=== PATIENT | female | born 1995 | race African-American/Black ===

== ENCOUNTER 2016-11-12 21:09 | Emergency (ER) | payer SELFPAY ==
[~2016-11-12] VITALS: Ht 172.7 cm; Wt 95.8 kg
[2016-11-12 22:46] LABS: HEMATOCRIT 36.6 % (36.0-46.0); MCH 26.1 PG (29.0-34.0); MCHC 33.1 G/DL (30.0-36.0); MCV 78.9 FL (83-99); MEAN PLAT.VOLUME 9.8 uM^3 (9.5-12.4); PLATELET COUNT 251 K/uL (156-360); RBC DIS.WIDTH-CV 13.6 % (11.8-14.6); RBC DIS.WIDTH-SD 38.2 % (39-53); RED BLOOD COUNT 4.64 M/uL (3.80-5.20)
[2016-11-12 22:47] LABS: WHITE BLOOD COUNT 7.2 K/uL (4.1-10.2)
[2016-11-12 22:55] LABS: CHLORIDE 107 mEq/L (99-109); POTASSIUM 3.6 mEq/L (3.7-5.4); SODIUM 138 mEq/L (136-147)
[2016-11-12 22:57] LABS: GLUCOSE 88 mg/dL (70-99)
[2016-11-12 22:58] LABS: ANION GAP 10 MEQ/L (2-14)
[2016-11-12 22:59] LABS: TOTAL BILIRUBIN 0.3 mg/dL (0.0-1.0)
[2016-11-12 22:59] LABS: ADD MIUA? YES; BILIRUBIN NEGATIVE; BLOOD LARGE; COLOR YELLOW ((YELLOW)); GLUCOSE (STRIP) NEGATIVE; KETONES 20; LEUKOCYTES MODERATE; NITRITE NEGATIVE; PROTEIN (STRIP) 100; SPECIFIC GRAVITY 1.028 (1.000-1.030); UROBILINOGEN 0.2 MG/DL (0.2-1.0)
[2016-11-12 23:00] LABS: ALKALINE PHOSPHATASE 57 IU/L (3-129)
[2016-11-12 23:01] LABS: GFR ESTIMATE (CALCULATED) > 59 mL/min/
[2016-11-12 23:02] LABS: UREA NITROGEN (BUN) 11 mg/dL (9-23)
[2016-11-12 23:18] LABS: BACTERIA RARE /HPF; EPITHELIAL CELLS RARE /HPF; MUCUS 3+ /LPF; RED BLOOD CELLS 0-5 /HPF (0-5); UCUL ADDED? NO; WHITE BLOOD CELLS 0-5 /HPF (0-5)
[2016-11-13 00:28] VITALS: BP 111/83
== END 2016-11-13 00:29 | disposition home or self-care (01) ==
LOC: EME 21:09
PROVIDERS: Nurse Practitioner Family
DX: O20.0 Threatened abortion (principal); O20.9 Hemorrhage in early pregnancy, unspecified; Z3A.10 10 weeks gestation of pregnancy
CPT/HCPCS: 76801; 80053; 81003; 84702; 85027; 99281; 99284